=== PATIENT | female | born 1955 | race Caucasian/White ===

== ENCOUNTER 2018-08-20 06:25 | Inpatient (IN) | payer OTHER ==
[~2018-08-20 06:25] MED LIST: POVIDONE-IODINE 20 ML in SODIUM CL IRRIG SOLUTION 500 ML IRR ONE; ROPIVACAINE 0.2% 80 MG, EPINEPHrine 0.2 MG, KETOROLAC TROMETHAMINE 30 MG in SYRINGE 0 ML IU ONE; TRANEXAMIC ACID 1,000 MG in NS 100 ML IV ONE; TRANEXAMIC ACID 3,000 MG in NS (SYRINGE) 50 ML IRR ONE
[2018-08-20] MEDS ORDERED: ceFAZolin 2 GM/DEXTROSE 100 ML IV ONE (06:36)
[2018-08-20] MEDS ORDERED: DEXAMETHASONE 4 MG/ML VIAL IVP ONE (06:36)
[2018-08-20] MEDS ORDERED: ACETAMINOPHEN 325 MG TAB PO ONE (06:36)
[2018-08-20] MEDS ORDERED: GABAPENTIN 300 MG CAP PO ONE (06:36)
[2018-08-20] MEDS ORDERED: FAMOTIDINE 20 MG TAB PO ONE (06:36)
[2018-08-20] MEDS ORDERED: ONDANSETRON 4 MG/2 ML VIAL IVP ONE (06:36)
[2018-08-20] MEDS ORDERED: LR 1,000 ML IV ONE (06:37)
[2018-08-20] MEDS ORDERED: LIDOCAINE 1% 2 ML INJ ID PRN (06:37)
--- NOTE | 2018-08-20 06:57 | PDHPUP ---
History & Physical Update H&P update statement: This history and physical update is based on an assessment of the patient which was completed after admission or registration (within 24 hours), but prior to the surgery/procedure. H&P update: H&P reviewed & patient examined
--- NOTE | 2018-08-20 07:26 | PDANEPAE ---
ANE Past Medical History - Cardiovascular History Hx Hypertension: No Hx Arrhythmias: No Hx Chest Pain: No Hx Coronary Artery / Peripheral Vascular Disease: No Hx CHF / Valvular Disease: No Hx Palpitations: No - Pulmonary History Hx COPD: No Hx Asthma/Reactive Airway Disease: No Hx Recent Upper Respiratory Infection: No Hx Oxygen in Use at Home: No Hx Sleep Apnea: No Sleep Apnea Screening Result - Last Documented: Negative - Neurologic History Hx Cerebrovascular Accident: No Hx Seizures: No Hx Dementia: No - Endocrine History Hx Diabetes: No - Renal History Hx Renal Disorders: No - Liver History Hx Hepatic Disorders: No - Neurological & Psychiatric Hx Hx Neurological and Psychiatric Disorders: No Neurological / Psychiatric History Comment: anxiety surrounding surgery - Cancer History Hx Cancer: No - Congenital Disorder History Hx Congenital Disorders: No - GI History Hx Gastrointestinal Disorders: No - Other Health History Other Health History: wears glasses at work for reading - Chronic Pain History Chronic Pain: Yes (right hip) - Surgical History Prior Surgeries: right HOWARD 06/27/2010. achilles tendon repair 1986. tonsillectomy as a child ANE Review of Systems Review of Systems: - Exercise capacity METS (RN): 4 METS ANE Patient History - Allergies Allergies/Adverse Reactions: No Known Allergies Allergy (Verified 08/06/18 10:36) - Home Medications Home Medications: Multivitamins [Multivitamin (OTC)] 1 each PO DAILY 03/31/12 [Last Taken 08/14/18 ] Acetaminophen [Tylenol 325mg (*)] 325 mg PO Q4HRS PRN 07/30/18 [Last Taken 08/19 22:00] Cholecalciferol Vit D3 [Vitamin D3 (*)] 5,000 units PO DAILY 07/30/18 [Last Taken 08/14/18] Compounded T3/T4 1 each PO DAILY 07/30/18 [Last Taken 08/17/18] Meloxicam 15 mg PO DAILY 07/30/18 [Last Taken 08/14/18] traMADol [Ultram 50 mg (*)] 50 mg PO Q4HRS PRN 07/30/18 [Last Taken 08/19/18 22: 00] - NPO status NPO Since - Liquids (Date): 08/19/18 NPO Since - Liquids (Time): 19:30 NPO Since - Solids (Date): 08/19/18 NPO Since - Solids (Time): 22:00 - Smoking Hx Smoking Status: Never smoked - Family Anes Hx Family Hx Anesthesia Complications: none ANE Labs/Vital Signs - Vital Signs Vital Signs: reviewed preoperatively; see RN documention for details Blood Pressure: 126/80 Heart Rate: 74 Respiratory Rate: 14 O2 Sat (%): 98 Height: 154.94 cm Weight: 47.627 kg ANE Physical Exam - Airway Neck exam: FROM Mallampati Score: Class 1 Mouth exam: normal dental/mouth exam - Pulmonary Pulmonary: clear to auscultation - Cardiovascular Cardiovascular: regular rate and rhythym - ASA Status ASA Status: II ANE Anesthesia Plan Anesthesia Plan: spinal
[2018-08-20] MEDS ORDERED: MIDAZOLAM 2 MG/2 ML VIAL IVP ONE (07:28)
[2018-08-20] MEDS ORDERED: ceFAZolin 1 GM/5 ML SYR ONE (07:29)
[2018-08-20] MEDS ORDERED: PROPOFOL/EMULSION 500 MG/50 ML BOTTLE IV ONE (07:33)
[2018-08-20] MEDS ORDERED: BUPIVACAINE/DEXTROSE 7.5MG/ML 2 ML SPINAL AMP SP ONE (07:51)
[2018-08-20] MEDS ORDERED: TRANEXAMIC ACID 3,000 MG/50 ML BAG IRR ONE (08:11)
[2018-08-20] MEDS ORDERED: GLYCOPYRROLATE 0.2 MG/1 ML VIAL ONE (08:16)
[2018-08-20] MEDS ORDERED: ePHEDrine SULFATE 25 MG/5 ML SYR ONE ×2 (08:22→08:35)
[2018-08-20] MEDS ORDERED: PHENYLEPHRINE HCL 100 MCG/ML SYR ONE ×2 (08:22→09:16)
--- NOTE | 2018-08-20 09:01 | POSTANESTH ---
Post Anesthetic Evaluation Respiratory Status: Normal, Stable Level of Consciousness/Mental Status: Can Participate in Eval Pain Control: Adequate, Prn Tx Ordered Nausea/Vomiting Control: Adequate, Prn Tx Ordered Complications Possibly Related to Anesthesia: None Noted
[2018-08-20] MEDS ORDERED: PROPOFOL 200 MG/20 ML VIAL ONE (09:30)
[2018-08-20] MEDS ORDERED: HYDROmorphONE/DILAUDID 2 MG/ML INJ IVP PRN (09:35)
[2018-08-20] MEDS ORDERED: PHENYLEPHRINE HCL 100 MCG/ML SYR IVP PRN (09:35)
[2018-08-20] MEDS ORDERED: NALOXONE HCL 0.4 MG/ML INJ IVP PRN (09:35)
[2018-08-20] MEDS ORDERED: MEPERIDINE 25 MG/0.5 ML AMP IVP PRN (09:35)
[2018-08-20] MEDS ORDERED: ALBUTEROL 3 ML DEYVIAL IH PRN (09:35)
[2018-08-20] MEDS ORDERED: DIAZEPAM 5 MG/ML 1 ML SYR IVP PRN (09:35)
[2018-08-20] MEDS ORDERED: fentaNYL 100 MCG/2 ML INJ IVP PRN (09:35)
[2018-08-20] MEDS ORDERED: PROMETHAZINE HCL 25 MG/ML INJ IVP PRN ×2 (09:35→10:14)
[2018-08-20] MEDS ORDERED: METOCLOPRAMIDE 10 MG/2 ML VIAL IVP PRN ×2 (09:35→10:14)
[2018-08-20] MEDS ORDERED: ONDANSETRON 4 MG/2 ML VIAL IVP PRN ×2 (09:35→10:14)
--- NOTE | 2018-08-20 10:07 | POSTOPPROG ---
Post Op Note Date of Operation: 08/20/18 Surgeon: Dillan Hamlin Drop Hammer Pile Driver Operator: Quincy Anesthesiologist: Kecia Anesthesia: IV Sedation, Spinal Post-op Diagnosis: right hip failed resurfacing procedure Procedure: Conversion of right hip resurfacing procedure to a total hip arthroplasty Inf/Abcess present in the surg proc area at time of surgery?: No EBL: 100-500
[2018-08-20] MEDS ORDERED: TEMAZEPAM 15 MG CAP PO PRN (10:14)
[2018-08-20] MEDS ORDERED: MAGNESIUM HYDROXIDE 30 ML UDCUP PO PRN (10:14)
[2018-08-20] MEDS ORDERED: ONDANSETRON DISINTEGRATING 4 MG TAB PO PRN (10:14)
[2018-08-20] MEDS ORDERED: traMADol 50 MG TAB PO PRN (10:14)
[2018-08-20] MEDS ORDERED: PROMETHAZINE HCL 25 MG SUPPR PR PRN (10:14)
[2018-08-20] MEDS ORDERED: CYCLOBENZAPRINE 10 MG TAB PO PRN (10:14)
[2018-08-20] MEDS ORDERED: NS 500 ML IV PRN (10:14)
[2018-08-20] MEDS ORDERED: LACTULOSE 20 GM/30 ML UDCUP PO PRN (10:14)
[2018-08-20] MEDS ORDERED: diphenhydrAMINE 25 MG CAP PO PRN (10:14)
[2018-08-20] MEDS ORDERED: BISACODYL 10 MG SUPP PR PRN (10:14)
[2018-08-20] MEDS ORDERED: DIPHENOXYLATE/ATROPINE LOMOTIL 1 TAB PO PRN (10:14)
[2018-08-20] MEDS ORDERED: POLYETHYLENE GLYCOL 3350 17 GM PKT PO PRN (10:14)
[2018-08-20] MEDS ORDERED: LR 1,000 ML IV SCH (10:30)
[2018-08-20] MEDS: KETOROLAC 15 MG/1 ML SDV IVP SCH ×3 (11:26→23:14)
[2018-08-20] MEDS: ACETAMINOPHEN 325 MG TAB PO SCH ×3 (11:26→23:12)
--- NOTE | 2018-08-20 11:27 | GOP ---
DATE OF OPERATION: 08/20/2018 SURGEON: Dillan Hamlin MD STONER HAND: Navneet Iqbal [facility] and Kwabena Garza, PAC ANESTHESIA: Combination of Marcaine, spinal, and IV sedation. ANESTHESIOLOGIST: Dr. 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 PROCEDURE PERFORMED: Conversion of right hip resurfacing procedure to total hip arthroplasty, Khang Modular Mandaeism stem. FINDINGS: SPECIMENS: I sent a sample of the hip joint fluid for aerobic and anaerobic cultures and Gram stain. I also sent a segment of the hip capsule for aerobic and anaerobic cultures. ESTIMATED BLOOD LOSS: About 400 mL. DESCRIPTION OF PROCEDURE: The patient was given 2 g of IV Ancef preoperatively within 60 minutes of surgery. She also received 1000 mg of IV tranexamic acid. She was placed on the operating room table and given spinal anesthesia with Marcaine by Dr. Mcdonnell. She was then placed supine and given IV sedation. A Recio catheter was not used. She wore a CARLOS stocking and SCD on the nonoperative leg. She was rolled to the left lateral decubitus position. An axillary roll was used and all pressure points were carefully padded. Her position was secured with the pegboard table attachment. I was careful to lock her pelvis in a vertical position. Her perineum was isolated with plastic adhesive drapes. Her right hip and right lower extremity were prepped with ChloraPrep. They were draped free using sterile sheets, stockinette, and Ioban plastic drapes. The World Health Organization time-out was performed to verify the correct surgical side and site and the correct patient identity. The Peterson time-out was also performed. Her pre-existing surgical incision was not where I typically make my incision; however, it was close enough that I felt it best to use the existing incision. I did extend it about an inch and a half distally. Subcutaneous tissues were sharply divided and hemostasis was obtained using electrocautery. Her fascia oh was identified. I could see the nonabsorbable sutures from her previous surgery. The fascia oh was split along the axis of its fibers. I curved posteriorly and proximally, and split the fascia of the gluteus monique and bluntly split the muscle fibers in line with their orientation. She was very thin woman, which made the exposure easier. The Charnley self- retaining retractor was inserted. Her sciatic nerve was in some scar tissue posteriorly from the previous surgery. I confined my dissection to along the posterior margin of the greater trochanter and stayed away from the sciatic nerve. The scarred external rotators and posterior hip capsule were divided as a single scarred layer at the base of the femoral neck, tagged, and reflected posteriorly. She had 10 or 15 cc of serosanguineous fluid within the hip joint. A culture was obtained of the fluid for aerobic and anaerobic cultures and a Gram stain. She had a moderate amount of capsular discoloration, but no significant metallosis. A limited capsulectomy was performed. I released the capsule superiorly and anteriorly. She was significantly shortened on the right side and I was intending to lengthen her. A smooth 8-inch Steinmann pin was inserted vertically into the ilium superior to the acetabulum to act as a retractor. Her head was easily dislocated posteriorly. The head and neck component were loose and I could easily pull the head out of the canal. I believe this is a Caitlin mid stem prosthesis. It was uncemented. There was no fifi ingrowth. She had a significant erosion and deficiency of the medial calcar extending down to the lesser trochanter. This was eroded by the stem of the femoral component, which was in significant varus alignment. I first determined where her femoral canal was. There was quite a bit of bony deformity in the proximal canal. Her femoral component stem, as it shifted into varus eroded out the lateral cortex of the proximal femur. I used intraoperative x-rays multiple times to identify the medullary canal and be sure that my reamer was within the medullary canal. I used an 8 mm ACL reamer to open the proximal canal. This was followed by the starter reamer. I took an AP and frog lateral cross-table x-ray with the starter reamer fully down the canal to confirm that I was in the intramedullary position. I reamed distally to 14 mm. I took an AP and frog lateral x-ray and confirmed that this was the proper size. The distal stem, which was 14 mm in diameter and 155 mm in length was inserted and tapped to the proper depth. I then performed a series of trial reductions. Once I was sure of my length and stability, I went ahead and reamed the proximal femur to 19 mm. The 19 mm with a height of +10 was then tapped until it engaged the distal cone. I selected the correct amount of anteversion. The proximal body was secured to the cone with the screw. I then did 1 final trial reduction with the -4 neck length on the bipolar head. I took an AP pelvis x-ray and confirmed proper position of the components and proper leg length. The bipolar head was assembled using a 28 mm ceramic head with a -4 mm neck length and a bipolar or polyethylene head with an outside diameter of 46 mm. The acetabulum was inspected and looked stable. It was properly positioned. It did not need to be removed and revised. The hip was reduced one final time. She had excellent stability. Her leg lengths were equal. The wound was irrigated with a dilute Betadine solution. 40 mL of the joint anesthetic cocktail were injected into the capsule, the deep musculature, and subcutaneous tissues around the skin edges. 50 mL of tranexamic acid solution were irrigated into the wound and left in place. The external rotators and the posterior hip capsule were repaired in a single layer with #2 FiberWire sutures through drill holes in the greater trochanter. This provided reasonably strong posterior capsular and external rotator repair. The fascia oh was closed first with 2 [id number] #2 FiberWire sutures, followed by a running #2 barbed Ethicon Stratafix PDO suture. Subcutaneous tissues were closed in layers with interrupted 2-0 Monocryl sutures, followed by a running 0 barbed Ethicon Stratafix Monoderm suture. The skin was closed with a running 3-0 barbed Ethicon Stratafix Monoderm subcuticular suture. The skin edges were reapproximated and sealed with Dermabond glue. The wound was covered with a large piece of waterproof Mepilex surgical dressing. Her sacral methyl expressing was applied. A long-leg CARLOS stocking and SCD were applied to her right lower extremity. She wore a stocking and SCD on the opposite leg during the procedure. An abduction pillow was placed between her knees. She was awakened from anesthesia and rolled to the supine position on her [facility]. She was taken to PACU in satisfactory condition. COMPLICATIONS: There were no recognized intraoperative complications. COUNT: The sponge and needle count were correct on 2 occasions. IMPLANTS: I used a [employer] modular rastafari stem. The distal cone was 155 mm in length and 14 mm in diameter. The proximal body was 19 mm with a +10 mm height. The dual mobility head was a 28 mm ceramic head with a 46 mm polyethylene ball. The neck length was -4 mm. Navneet Iqbal and Cabrera Garza acted as surgical assistants. Their assistance was a medical necessity for safe completion of the procedure. /[id number]/MODL MTDD
--- NOTE | 2018-08-20 11:44 | PDMN ---
Medical Necessity Medical necessity: Pt meets inpt criteria per MD order and [facility] S-560, Hip Arthroplasty, A-2 days, IP only list. 63 y/o w/failed R hip resurfacing procedure w/loose femoral component admitted for R HOWARD and post-op care.
[2018-08-20] MEDS: oxyCODONE IR 5 MG TAB PO PRN ×4 (12:18→23:13)
[2018-08-20] MEDS: ceFAZolin 2 GM/DEXTROSE 100 ML IV SCH ×2 (15:56→23:16)
[2018-08-20] MEDS: SENNOSIDES/DOCUSATE SODIUM TAB PO SCH (21:20)
[2018-08-20] MEDS: FAMOTIDINE 20 MG TAB PO SCH (21:21)
[2018-08-20] MEDS: ASPIRIN 325 MG TAB PO SCH (21:25)
[2018-08-21] MEDS: KETOROLAC 15 MG/1 ML SDV IVP SCH (05:01)
[2018-08-21] MEDS: ACETAMINOPHEN 325 MG TAB PO SCH ×2 (05:03→11:25)
--- NOTE | 2018-08-21 07:24 | SOAPPROG ---
SOAP Progress Note Assessment/Plan: Assessment: Awake and alert. Afebrile. Up and walking yesterday. She had some postural hypotension in the afternoon. Her dressing is dry. Sciatic nerve intact. Hemoglobin today is 26.7. Postop films look excellent. Plan: Continue hydration. Continue physical therapy. Discharge later today. She will go to outpatient physical therapy at my office next week. She has someone stain with her at night for the next few days. 08/21/18 07:23 Objective: Vital Signs Temp Pulse Resp BP Pulse Ox 36.8 C 73 16 90/51 L 95 08/21/18 04:00 08/21/18 04:00 08/21/18 04:00 08/21/18 04:00 08/21/18 04:00 Microbiology 08/20/18 08:36 Gram Stain - Final Hip - Eswab 08/20/18 08:36 Gram Stain - Final Hip - Tissue Laboratory Results 08/21/18 04:44 08/20/18 08/21/18 08/22/18 05:59 05:59 05:59 Intake Total 1650 Output Total 2550 Balance -900 ICD10 Worksheet Patient Problems: Problems Problem Status Onset Failed total hip arthroplasty Acute
--- NOTE | 2018-08-21 07:26 | SOAPPROG ---
SOAP Progress Note Assessment/Plan: Assessment: Awake and alert. Afebrile. Up and walking yesterday. She had some postural hypotension in the afternoon. Her dressing is dry. Sciatic nerve intact. Hemoglobin today is 26.7. Postop films look excellent. Plan: Continue hydration. Continue physical therapy. Discharge later today. She will go to outpatient physical therapy at my office next week. She has someone stain with her at night for the next few days. 08/21/18 07:23 Objective: Vital Signs Temp Pulse Resp BP Pulse Ox 36.8 C 73 16 90/51 L 95 08/21/18 04:00 08/21/18 04:00 08/21/18 04:00 08/21/18 04:00 08/21/18 04:00 Microbiology 08/20/18 08:36 Gram Stain - Final Hip - Eswab 08/20/18 08:36 Gram Stain - Final Hip - Tissue Laboratory Results 08/21/18 04:44 08/20/18 08/21/18 08/22/18 05:59 05:59 05:59 Intake Total 1650 Output Total 2550 Balance -900 Her H/H today are 9.0 and 25.7 ICD10 Worksheet Patient Problems: Problems Problem Status Onset Failed total hip arthroplasty Acute
[2018-08-21] MEDS ORDERED: FERROUS SULFATE 325 MG TAB PO SCH (08:00)
[2018-08-21 08:17] VITALS: BP 99/61
--- NOTE | 2018-08-21 08:20 | GDS ---
ADMISSION DIAGNOSIS: Failed right hip resurfacing hip replacement. DISCHARGE DIAGNOSIS: Failed right hip resurfacing hip replacement. OPERATION PERFORMED: 08/20/2018, revision of right hip resurfacing procedure to a total hip arthropl [place]. POSTOPERATIVE COMPLICATIONS: None. CONDITION ON DISCHARGE: Improved. DESCRIPTION OF HOSPITAL COURSE: The patient was admitted to the hospital the morning of surgery. He r preoperative CBC was normal. The same day, under a combination of Marcaine, spinal, and IV sedatio n, she underwent revision of her failed hip resurfacing procedure to a total hip arthroplasty. Posto peratively, she was treated with multimodal DVT prophylaxis, including aspirin. On the first postope rative day, her hemoglobin and hematocrit were 9.0 and 25.7. She did not require transfusion. She w as seen by Physical Therapy, and made good progress with ambulation and stairs. By the time of disch arge, she was afebrile, her wound was clean and dry, and she was independent walking with a walker. DISPOSITION: The patient is discharged to her home. She will have friends staying with her overniyash trevino for the next couple of nights. She may progress to full weightbearing on the right as tolerated. Continue aspirin 325 mg p.o. daily for 21 days. She has prescriptions for oxycodone, tramadol, and C elebrex for pain control. She will go to outpatient physical therapy in my office next week. I will see her back in the office on September 11, 2018. If there any problems, she is to call me at the off ice. /[id number]/MODL
[2018-08-21] MEDS ORDERED: [UNRECOGNIZED DRUG - MIXTURE] PO SCH (09:00)
[2018-08-21] MEDS: SENNOSIDES/DOCUSATE SODIUM TAB PO SCH (09:04)
[2018-08-21] MEDS: oxyCODONE IR 5 MG TAB PO PRN (09:04)
[2018-08-21] MEDS: ASPIRIN 325 MG TAB PO SCH (09:05)
[2018-08-21] MEDS: FAMOTIDINE 20 MG TAB PO SCH (09:05)
--- NOTE | 2018-08-21 14:47 | ASMTLACE ---
LACE Length of stay for Answers: 2 days current admission Acuity / Level of Answers: Yes Care: Did the patient have an inpatient admission? Comorbidities - select Answers: Opioid dependence all that apply / Chronic pain # of Emergency department Answers: 0 visits in the last 6 months Score: 9 Date Signed: 08/21/2018 02:47 PM Electronically Signed By:HARITHA Velez
--- NOTE | 2018-08-21 14:52 | ASMTCMCOM ---
CM Note CM Note Notes: Pt medically stable for d/c. PT rec home/hhc, OT rec HHC. rec outpatient PT to start at MD office next week. Updated pt did not order/rec HHC, pt is understanding. Pt reports she is depressed as she is not used to being physically limited. Pt is provided resources for counseling. Pt also provided a walker because the one she obtained is bariatric. Pt will have [employer] care stay with her overnight. Date Signed: 08/21/2018 02:51 PM Electronically Signed By:HARITHA Velez
== END 2018-08-21 14:07 | disposition home or self-care (01) | DRG 468 ==
LOC: F3N 06:25
PROVIDERS: ADMIT Orthopaedic Surgery; ATTEND Orthopaedic Surgery
DX: T84.020A Dislocation of internal right hip prosthesis, initial encounter (principal); Z96.641 Presence of right artificial hip joint; Z23 Encounter for immunization
CPT/HCPCS: 97110-GP; 97116-GP; 97161-GP; 97166-GO; 97530-GP; 97535-GO; C1713; J0171; J0690; J1100; J1885; J2250; J2270; J2370; J2405; J2704; J2795